=== PATIENT | female | born 1995 | race Caucasian/White ===

== ENCOUNTER 2016-07-16 11:26 | Emergency (ER) | payer OTHER ==
[~2016-07-16 11:26] MED LIST: CONCERTA; NO MEDICATIONS
[2016-07-16 11:33] LABS: INFLUENZA A NEG (NEG); INFLUENZA B NEG (NEG)
== END 2016-07-16 11:53 | disposition home or self-care (01) ==
LOC: SED 11:26
PROVIDERS: Nurse Practitioner
DX: B34.9 Viral infection, unspecified (principal); F17.210 Nicotine dependence, cigarettes, uncomplicated
CPT/HCPCS: 87651; 87804; 99283